=== PATIENT | male | born 1950 | race Caucasian/White ===

== ENCOUNTER 2022-10-27 10:27 | Emergency (ER) | payer MEDICARE, SELFPAY ==
[2022-10-27 10:31] VITALS: BP 164/70; PULSE 62; RESP 14; TEMP 36.8; O2SAT 94; BMI 30.4
--- NOTE | 2022-10-27 10:52 | ED_ITS ---
HPI - General Adult General Chief complaint: Abdominal Pain Stated complaint: Abdominal pain Time Seen by Provider: 10/27/22 10:40 Source: patient Mode of arrival: ambulatory Limitations: no limitations History of Present Illness HPI narrative: 72-year-old male coming in today complaining of right lower quadrant abdominal pain going on day 2 now. The pain comes and goes in waves. Nothing seems to make it better or worse. He feels slightly nauseated but still feels hungry and is able to eat. Denies any vomiting. He states that the pain does radiate into his penis. He denies any increased urinary frequency, urgency or dysuria. Denies changes in the color of his urine. States he has been having daily bowel movements, today's was slightly smaller than his usual but nothing otherwise abnormal. He states that he has had diverticulitis in the past and this feels very similar to his last episode of diverticulitis. He also states that he has had kidney stones in the past but his pain is usually in the flank when he has kidney stones and not in the right lower quadrant where it is now. He is status post an appendectomy. He only takes rosuvastatin. Related Data Home Medications Medication Instructions Recorded Confirmed rosuvastatin 10 mg tablet (Crestor) 10 mg PO DAILY 10/27/22 10/27/22 Allergies Allergy/AdvReac Type Severity Reaction Status Date / Time latex Allergy Unknown Redness of Verified 10/27/22 10:36 Skin Review of Systems Status of ROS: Reports: 10 or more systems reviewed and unremarkable except as noted in History and below PFSH PFS Social History Smoking Status: Former smoker How often do you have a drink containing alcohol: monthly or less AUDIT-C Alcohol total score: 1 Non-prescribed substance use: denies use Exam Narrative: Exam Narrative: Well-nourished well-developed patient in no acute distress. Alert and oriented. Answers questions appropriately. Mood and affect are appropriate. Thoughts are goal oriented and rational. No tangential or magical thinking noted. Patient speaks in full sentences without needing to catch their breath. HEENT: Normocephalic atraumatic. Pupils are equally round reactive to light. Extraocular muscles are intact. Conjunctivae are moist without any icterus noted. Moist mucous membranes. Posterior pharynx is normal. Neck is soft. Cardiovascular: Heart is regular rate and rhythm S1 and S2 are present without any murmurs. Lungs: Clear to auscultation bilaterally no wheezes rhonchi or rales are appreciated. Patient takes deep breaths without any discomfort. Abdomen: Soft and nontender nondistended with normal bowel sounds. No guarding or rebound. No masses or organomegaly appreciated. Negative Flowers sign. Extremities: Bilateral lower extremities are without edema. Normal DP and PT pulses. Skin: Well perfused without any obvious rashes. Const: Vital Signs, click to edit/add: Vital Signs - 24 hr 10/27/22 10:31 Temperature 98.3 F Pulse Rate [Pulse Oximeter] 62 Respiratory Rate 14 Blood Pressure [Ri ght Upper Arm] 164/70 H Pulse Oximetry 94 Oxygen Delivery Me thod Room Air Course Course Hospital Course: IV established and labs were drawn. Labs were unremarkable aside from blood in the urine. Did discuss with patient that he likely had a small kidney stone. We discussed watchful monitoring over the next few days to see if you passive versus imaging and patient requested CT scan be done to see the location of and the size of the stone. CT was done in he is indeed have a 2 mm stone in the distal right ureter consistent with the location of his pain. Vital Signs Vital signs: Initial Vital Signs Temperature 98.3 F 10/27/22 10:31 Temperature Source Temporal Artery Scan 10/27/22 10:31 Pulse Rate 62 10/27/22 10:31 Pulse Rhythm Regular 10/27/22 10:31 Respiratory Rate 14 10/27/22 10:31 Blood Pressure 164/70 H 10/27/22 10:31 Blood Pressure Mean 101 10/27/22 10:31 Blood Pressure Position Sitting 10/27/22 10:31 Pulse Oximetry 94 10/27/22 10:31 Oxygen Delivery Method Room Air 10/27/22 10:31 Vital Signs Temperature 98.3 F 10/27/22 10:31 Pulse Rate 62 10/27/22 10:31 Respiratory Rate 14 10/27/22 10:31 Blood Pressure 164/70 H 10/27/22 10:31 Pulse Oximetry 94 10/27/22 10:31 Oxygen Delivery Method Room Air 10/27/22 10:31 Temperature 98.3 F 10/27/22 10:31 Pulse Rate 62 10/27/22 10:31 Respiratory Rate 14 10/27/22 10:31 Blood Pressure 164/70 H 10/27/22 10:31 Pulse Oximetry 94 10/27/22 10:31 Oxygen Delivery Method Room Air 10/27/22 10:31 Medical Decision Making MDM Narrative Medical decision making narrative: Kidney stones. Stone is small enough in appears to be moving given the patient's symptoms. We discussed pain management and patient felt like ibuprofen was sufficiently helping with the pain. We discussed reasons for follow-up. Patient was in agreement and had no other questions. Lab Data Lab results reviewed: Yes I reviewed the patient's lab results Labs: Lab Results 10/27/22 10/27/22 Range/Units 10:50 11:05 WBC 5.85 (4.50-11.00) K/uL RBC 5.12 (4.30-5.90) m/uL Hgb 15.5 (13.5-17.5) gm/dL Hct 46.2 (37.0-53.0) % MCV 90 (80-100) fL MCH 30 (26-34) pg MCHC 34 (32-36) gm/dL RDW Coeff of Pernell 12.2 (11.5-15.5) % Plt Count 237 (140-440) K/uL Neut % (Auto) 71.0 (42.0-72.0) % Lymph % (Auto) 17.4 L (20-44) % [place] % (Auto) 9.9 (0.0-11.0) % Eos % (Auto) 1.4 (0.0-7.0) % Baso % (Auto) 0.3 (0.0-3.0) % Neut # (Auto) 4.15 (1.7-7.0) K/uL Lymph # (Auto) 1.00 (0.90-2.90) K/uL [place] # (Auto) 0.60 (0.00-0.90) K/UL Eos # (Auto) 0.08 (0.00-0.50) K/uL Baso # (Auto) 0.02 (0.00-0.30) K/uL ESR 7 (2-15) mm/hr Sodium 139 (135-149) mmol/L Potassium 4.0 (3.6-5.1) mmol/L Chloride 107 (96-114) mmol/L Carbon Dioxide 26 (20-32) mmol/L BUN 16 (7-30) mg/dL Creatinine 0.8 (0.5-1.5) mg/dL Estimated Creat Clear 63.65 Estimated GFR 93 ml/min Glucose 119 H (60-115) mg/dL Lactate 1.4 (0.5-1.9) mmol/L Calcium 9.2 (8.4-10.6) mg/dL Total Bilirubin 0.9 (0.1-1.5) mg/dL Direct Bilirubin 0.2 (0.0-0.5) mg/dL AST 33 (12-35) U/L ALT 29 (4-50) U/L Alkaline Phosphatase 58 (40-150) U/L C-Reactive Protein 0.6 (0.5-1.0) mg/dL Total Protein 7.0 (6.0-8.3) g/dL Albumin 4.1 (3.3-5.0) g/dL Lipase 125 (23-300) U/L Urine Color Dark yellow (Yellow) Urine Appearance Clear (Clear) Urine pH 5.5 (5.0-8.5) Ur Specific [place] >= 1.030 (1.000-1.030) Urine Protein 1+ A (Negative) Urine Glucose (UA) Negative (Negative) Urine Ketones Negative (Negative) Urine Blood 2+ A (Negative) Urine Nitrite Negative (Negative) Urine Bilirubin Negative (Negative) Urine Urobilinogen 0.2 (0.2-1.0) Ur Leukocyte Esterase Negative (Negative) Urine RBC 10-25 A (0-2) Urine WBC 0-2 (0-5) Ur Squamous Epith Cells Few (None-Few) Urine Bacteria Few A (None) Imaging Data CT scan - abdomen: Attestation: I have reviewed the pertinent imaging results. Radiologist's impression: CT abdomen and pelvis without contrast. COMPARISON: None. FINDINGS: Urinary tract: 2 mm calculus in the distal right ureter just proximal ureterovesical junction (series 2, image 148). No right hydronephrosis. No other urinary tract calculi. No hydronephrosis on the left. Left renal cysts including parapelvic cysts. Largest cyst on the left is a 3.3 cm cyst in the lower pole. Abdomen: Cholecystectomy. Liver, pancreas, spleen, and adrenal glands are unremarkable. No dilated bowel. Colonic diverticulosis. No free fluid. No lymphadenopathy. Atherosclerotic calcifications. No abdominal aortic aneurysm. Pelvis: Prostatectomy. No lymphadenopathy. Musculoskeletal: Degenerative changes of the spine. Lower chest: Minimal atelectasis in the lung bases. Coronary artery calcifications. IMPRESSION: 1. 2 mm calculus in the distal right ureter. No right hydronephrosis. 2. Cholecystectomy. 3. Colonic diverticulosis. Discharge Plan Discharge Clinical Impression: Calculus of kidney Patient Disposition: Home, Self-Care Condition: Stable Additional Instructions: You have a very small kidney stone that appears to be small enough that it will pass on its own. Drink plenty of water intake ibuprofen as needed. Follow-up with your primary care provider or in the ER if you develop fever, pain that is not manageable, or vomiting. Prescriptions: No Action rosuvastatin [Crestor] 10 mg tablet 10 mg PO DAILY Stand Alone Forms: [employer] Info Instructions
[2022-10-27 11:16] LABS: Appearance Urine Clear (Clear); Bilirubin Urine Negative (Negative); Blood Urine 2+ (Negative); Color Urine Dark yellow (Yellow); Glucose Urine Negative (Negative); Ketones Urine Negative (Negative); Leukocyte Esterase Urine Negative (Negative); Nitrite Urine Negative (Negative); Protein Urine 1+ (Negative); Specific Gravity Urine >= 1.030 (1.000-1.030); Urobilinogen Urine 0.2 (0.2-1.0); pH Urine 5.5 (5.0-8.5)
[2022-10-27 11:22] LABS: Lactate* 1.4 mmol/L (0.5-1.9)
[2022-10-27 11:24] LABS: Basophils Absolute Auto 0.02 K/uL (0.00-0.30); Basophils Percent Auto 0.3 % (0.0-3.0); Eosinophils Absolute Auto 0.08 K/uL (0.00-0.50); Eosinophils Percent Auto 1.4 % (0.0-7.0); Hematocrit 46.2 % (37.0-53.0); Hemoglobin* 15.5 gm/dL (13.5-17.5); Lymphocytes Percent Auto 17.4 % (20-44); Mean Corpuscular HGB Conc 34 gm/dL (32-36); Mean Corpuscular Hemoglobin 30 pg (26-34); Mean Corpuscular Volume 90 fL (80-100); Monocytes Percent Auto 9.9 % (0.0-11.0); Neutrophils Absolute Auto 4.15 K/uL (1.7-7.0); Platelet Count* 237 K/uL (140-440); RDW Coefficient of Variation % 12.2 % (11.5-15.5); Red Blood Count 5.12 m/uL (4.30-5.90); White Blood Count* 5.85 K/uL (4.50-11.00)
[2022-10-27 11:29] LABS: Slide Review Reflex No
[2022-10-27 11:30] LABS: Bacteria Urine Few; Squamous Epithelial Cell Urine Few (None-Few); WBC Urine 0-2 (0-5)
[2022-10-27 11:40] LABS: Albumin* 4.1 g/dL (3.3-5.0)
[2022-10-27 11:41] LABS: Chloride* 107 mmol/L (96-114); Sodium* 139 mmol/L (135-149)
[2022-10-27 11:43] LABS: Alanine Aminotransferase* 29 U/L (4-50); Alkaline Phosphatase* 58 U/L (40-150); Aspartate Amino Transferase* 33 U/L (12-35); Bilirubin Direct* 0.2 mg/dL (0.0-0.5); Bilirubin Total* 0.9 mg/dL (0.1-1.5); Creatinine* 0.8 mg/dL (0.5-1.5); Est. Creatinine Clearance* 63.65; Estimated Glomerular Filt Rate 93 ml/min; Lipase* 125 U/L (23-300)
[2022-10-27 11:44] LABS: Blood Urea Nitrogen* 16 mg/dL (7-30); Carbon Dioxide* 26 mmol/L (20-32)
[2022-10-27 11:45] LABS: Calcium* 9.2 mg/dL (8.4-10.6); Glucose* 119 mg/dL (60-115)
[2022-10-27 11:47] LABS: C Reactive Protein* 0.6 mg/dL (0.5-1.0)
--- NOTE | 2022-10-27 11:51 | CRLHL7_ITS ---
For Patients: As a result of the Century Cures Act, medical imaging exams and procedure reports are released immediately into your electronic medical record. You may view this report before your referring provider. If you have questions, please contact your health care provider. HISTORY: Right-sided kidney stone. TECHNIQUE: CT abdomen and pelvis without contrast. COMPARISON: None. FINDINGS: Urinary tract: 2 mm calculus in the distal right ureter just proximal ureterovesical junction (series 2, image 148). No right hydronephrosis. No other urinary tract calculi. No hydronephrosis on the left. Left renal cysts including parapelvic cysts. Largest cyst on the left is a 3.3 cm cyst in the lower pole. Abdomen: Cholecystectomy. Liver, pancreas, spleen, and adrenal glands are unremarkable. No dilated bowel. Colonic diverticulosis. No free fluid. No lymphadenopathy. Atherosclerotic calcifications. No abdominal aortic aneurysm. Pelvis: Prostatectomy. No lymphadenopathy. Musculoskeletal: Degenerative changes of the spine. Lower chest: Minimal atelectasis in the lung bases. Coronary artery calcifications. IMPRESSION: 1. 2 mm calculus in the distal right ureter. No right hydronephrosis. 2. Cholecystectomy. 3. Colonic diverticulosis. Please note that all CT scans at this facility use dose modulation, iterative reconstruction, and/or weight-based dosing when appropriate to reduce radiation dose to as low as reasonably achievable. Dictated by Delta Wilson MD @ 10/27/2022 1:43:31 PM (Electronically Signed)
[2022-10-27 12:07] LABS: Erythrocyte SedimentationRate* 7 mm/hr (2-15)
[2022-10-27 14:03] VITALS: BP 148/62; PULSE 70; RESP 14; TEMP 36.8
== END 2022-10-27 14:00 | disposition home or self-care (01) ==
PROVIDERS: Emergency Provider Family Medicine; PCP Family Medicine
DX: N20.0 Calculus of kidney (principal)
CPT/HCPCS: 36415; 74176; 80048; 80076; 81001; 81003; 83605; 83690; 85025; 85651; 86140; 87086; 99284

== ENCOUNTER 2023-12-17 11:39 | Emergency (ER) | payer MEDICARE, SELFPAY ==
[2023-12-17 11:51] VITALS: BP 153/80; PULSE 55; RESP 16; TEMP 36.4; O2SAT 95; BMI 30.3
--- NOTE | 2023-12-17 12:14 | CRLHL7_ITS ---
For Patients: As a result of the Century Cures Act, medical imaging exams and procedure reports are released immediately into your electronic medical record. You may view this report before your referring provider. If you have questions, please contact your health care provider. INDICATION: Intermittent pain left thigh TECHNIQUE: Ultrasound venous duplex lower left extremity. Compression venous exam was performed using ramirez-scale, color Doppler, and spectral Doppler analysis. COMPARISON: None. FINDINGS: Sonographic imaging demonstrates the left common femoral, deep femoral, superficial femoral, popliteal, posterior tibial and greater saphenous and the contralateral right common femoral veins to be fully compressible with normal color Doppler blood flow. IMPRESSION: Normal left lower extremity venous ultrasound, no sign of deep venous thrombosis. Dictated by Cyril Mendoza MD @ 12/17/2023 12:46:33 PM (Electronically Signed)
--- NOTE | 2023-12-17 12:51 | ED_ITS ---
HPI - General Adult General Chief complaint: Extremity Pain/Injury, Lower Stated complaint: left leg pain Time Seen by Provider: 12/17/23 12:14 History of Present Illness HPI narrative: Patient is a 73 year white male who had a sharp stabbing discomfort in his left medial since last night. Occasionally it is quite intense, does not have any back pain, has not had any trauma or injury, no new workouts her activities. He is retired from a [employer] company. He denies fevers chills, dysuria or injury as mention he has noticed no redness or swelling in the area. At this time he had an ultrasound done prior to my arrival that is negative for DVT or any deep vein thrombosis in the thigh or leg. As mentioned he denies back pain Related Data Home Medications ?Medication ?Instructions ?Recorded ?Confirmed rosuvastatin 10 mg tablet (Crestor) 10 mg PO DAILY 10/27/22 10/27/22 Allergies Allergy/AdvReac Type Severity Reaction Status Date / Time latex Allergy Unknown Redness of Verified 10/27/22 10:36 Skin Review of Systems Status of ROS: Reports: 6 or more systems reviewed and unremarkable except as noted in History and below [facility] Social History Smoking Status: Former smoker How often do you have a drink containing alcohol: monthly or less AUDIT-C Alcohol total score: 1 Non-prescribed substance use: denies use Exam Narrative: Exam Narrative: Objective patient's vital signs show slightly the elevated blood pressure Afebrile In no apparent distress Range of motion of the left thigh and examination is completely normal no redness, no palpable cords, no cellulitic changes, no bruising Range of motion of the hip and knee are normal Distal CMS in the left lower extremities normal. Const: Vital Signs, click to edit/add: Vital Signs - 24 hr 12/17/23 11:51 Temperature 97.5 F L Pulse Rate [Pulse Oximeter] 55 L Respiratory Rate 16 Blood Pressure [Ri ght Upper Arm] 153/80 H Pulse Oximetry 95 Oxygen Delivery Me thod Room Air Course Vital Signs Vital signs: Initial Vital Signs Temperature 97.5 F L 12/17/23 11:51 Temperature Source Temporal Artery Scan 12/17/23 11:51 Pulse Rate 55 L 12/17/23 11:51 Respiratory Rate 16 12/17/23 11:51 Blood Pressure 153/80 H 12/17/23 11:51 Blood Pressure Mean 104 12/17/23 11:51 Blood Pressure Position Sitting 12/17/23 11:51 Pulse Oximetry 95 12/17/23 11:51 Oxygen Delivery Method Room Air 12/17/23 11:51 Vital Signs Temperature 97.5 F L 12/17/23 11:51 Pulse Rate 55 L 12/17/23 11:51 Respiratory Rate 16 12/17/23 11:51 Blood Pressure 153/80 H 12/17/23 11:51 Pulse Oximetry 95 12/17/23 11:51 Oxygen Delivery Method Room Air 12/17/23 11:51 Temperature 97.5 F L 12/17/23 11:51 Pulse Rate 55 L 12/17/23 11:51 Respiratory Rate 16 12/17/23 11:51 Blood Pressure 153/80 H 12/17/23 11:51 Pulse Oximetry 95 12/17/23 11:51 Oxygen Delivery Method Room Air 12/17/23 11:[address] [facility] Narrative Medical decision making narrative: [age] year white male with some left thigh discomfort may be musculoskeletal. Would recommend Advil or Aleve, ice, light activity, recheck with regular doctor next few days not resolving. Ultrasound today is negative. He was comfortable plan will follow up as directed. Limit activity and standing. Discharge Plan Discharge Clinical Impression: Acute pain of left thigh Patient Disposition: Home w/ Parent or Adult Condition: Stable Additional Instructions: Light activity, ice the area, stretching as tolerated, Advil or Aleve as needed, follow-up with primary care in the next 2-3 days not improving changes concerns worsening can return to the ED. Activity Level: Light activity Discharge Diet: Regular Prescriptions: No Action rosuvastatin [Crestor] 10 mg tablet 10 mg PO DAILY Follow Up/Referrals: Triston Poe MD [Primary Care Provider] - Stand Alone Forms: [employer] Info Instructions
== END 2023-12-17 13:03 | disposition home or self-care (01) ==
LOC: ED 13:02
PROVIDERS: Emergency Provider Family Medicine; PCP Family Medicine
DX: M79.605 Pain in left leg (principal)
CPT/HCPCS: 93971; 99284